=== PATIENT | female | born 1995 | race Caucasian/White ===

== ENCOUNTER 2022-11-26 09:46 | Emergency (ER) | payer OTHER, SELFPAY ==
--- NOTE | 2022-11-26 10:00 | ED.GENADULT ---
HPI - General Adult General Stated complaint: COVID+, Chest/Lung Pain,SOB Time Seen by Provider: 11/26/22 09:58 Discharge Plan Departure Referrals: Miscellaneous,Doctor, [Primary Care Provider] -
[2022-11-26 10:10] VITALS: BP 143/88; PULSE 94; RESP 18; TEMP 37.3; O2SAT 98; BMI 22.3
--- NOTE | 2022-11-26 10:14 | DI.RAD.S_ITS ---
PROCEDURE: XR CHEST 1V INDICATIONS: couch, chest pain with cough TECHNIQUE: One view of the chest was acquired. COMPARISON: None. FINDINGS: Surgical changes and devices: Right upper quadrant surgical clips. Lungs and pleura: Lungs are clear. No pleural effusions or pneumothorax. Mediastinum: Mediastinal contours appear normal. Heart size is normal. Bones and chest wall: No suspicious bony lesions. Overlying soft tissues appear unremarkable. IMPRESSION: Portable chest within normal limits for age. Dictated by: Darren Khan M.D. on 11/26/2022 at 11:02 Approved by: Darren Khan M.D. on 11/26/2022 at 11:03
[2022-11-26 10:39] LABS: COVID19 -Nasal RAPID POSITIVE (Negative)
--- NOTE | 2022-11-26 11:50 | ED_ITS ---
HPI - URI/Sore Throat <John Santos PA-C - Last Filed: 11/26/22 12:07> General Chief Complaint: Upper Respiratory Symptoms Stated Complaint: COVID+, Chest/Lung Pain,SOB Time Seen by Provider: 11/26/22 09:58 Source: patient Mode of arrival: Ambulatory History of Present Illness HPI Narrative: This is a 27-year-old female presents emergency department due to URI symptoms for the last 6 days. She states she was she has a continued cough. No recorded fevers. States that she has had some mild shortness of breath though she states she does have asthma. States she has a runny nose and has been extra fatigued. Denies any significant chest pain, abdominal pain, or any other concerning signs or symptoms. Related Data Previous Rx's Medication Instructions Recorded albuterol sulfate 90 mcg/actuation 1 inh inhalation Q4-6H PRN 11/26/22 breath activated powder inhaler shortness of breath #1 ea benzonatate 100 mg capsule 100 mg PO BID PRN cough #30 caps 11/26/22 Allergies Allergy/AdvReac Type Severity Reaction Status Date / Time amoxicillin [From Augmentin] Allergy Hives Verified 11/26/22 10:14 clavulanic acid Allergy Hives Verified 11/26/22 10:14 [From Augmentin] metoclopramide [From Reglan] Allergy Anxiety Verified 11/26/22 10:14 gabapentin AdvReac Nausea Verified 11/26/22 10:14 ketorolac [From Toradol] AdvReac Nausea Verified 11/26/22 10:14 Review of Systems <John Santos PA-C - Last Filed: 11/26/22 12:07> Review of Systems Narrative: GENERAL: Denies chills, fatigue, malaise, fever, sweats. HEENT: Denies sinus pain, ear pain, sore throat, difficulty swallowing, dizziness. RESPIRATORY: Reports mild shortness of breath although chronic, reports cough Denies, wheezing, hemoptysis, sputum. CARDIOVASCULAR: Denies chest pain, palpitations, orthopnea, edema, GASTROINTESTINAL: Denies nausea, vomiting, abdominal pain, diarrhea, constipation, melena. : Denies dysuria, frequency, incontinence, hematuria, urinary retention. MUSCULOSKELETAL: denies weakness, joint pain, or bony pain SKIN: Denies rash, skin lesions, or other NEUROLOGIC: Denies weakness, headache, numbness, change in speech, confusion, seizures, incoordination. PSYCHIATRIC: No concerning psychosocial issues. 12 point review of systems is negative except for those stated above Patient History <John Santos PA-C - Last Filed: 11/26/22 12:07> Social History Smoking Status: Never smoker Smoking Status: Never smoker alcohol intake frequency: 0-2 drinks per day Substance Use Type: marijuana Exam <ANGELA Hobbs Last Filed: 11/26/22 12:07> Narrative Exam Narrative: GENERAL: Well-developed patient, in mild distress. HEAD: Atraumatic. Normocephalic. EYES: Pupils equal round and reactive. Extraocular motions intact. No scleral icterus. No injection or drainage. ENT: Nose without bleeding, purulent drainage. Throat without erythema, tonsillar hypertrophy or exudate. Airway patent. NECK: Trachea midline. Non tender CARDIOVASCULAR: Regular rate and rhythm without murmurs, gallops, or rubs. RESPIRATORY: Clear to auscultation. Breath sounds equal bilaterally. No wheezes, rales, or rhonchi. GASTROINTESTINAL: Abdomen soft, non-tender, nondistended. EXTREMITIES: No edema or joint tenderness. BACK: Nontender without deformity or crepitance. No flank tenderness. NEURO: AOx3. SKIN: No rash or erythema of visible areas Initial Vital Signs Initial Vital Signs: Vital Signs Temperature 99.2 F 11/26/22 10:10 Pulse Rate 94 H 11/26/22 10:10 Respiratory Rate 18 11/26/22 10:10 Blood Pressure 143/88 H 11/26/22 10:10 Pulse Oximetry 98 11/26/22 10:10 Oxygen Delivery Method Room Air 11/26/22 10:10 <Fransico Worley DO - Last Filed: 11/27/22 08:54> Initial Vital Signs Initial Vital Signs: Vital Signs Temperature 99.2 F 11/26/22 10:10 Pulse Rate 94 H 11/26/22 10:10 Respiratory Rate 18 11/26/22 10:10 Blood Pressure 143/88 H 11/26/22 10:10 Pulse Oximetry 98 11/26/22 10:10 Oxygen Delivery Method Room Air 11/26/22 10:10 Course <John Santos PA-C - Last Filed: 11/26/22 12:07> Orders Ordered: ED Orders 11/26/22 10:14 XR chest 1V Stat 11/26/22 10:15 COVID19 -Nasal RAPID Stat Vital Signs Vital signs: Vital Signs - 8 hr 11/26/22 10:10 Temperature 99.2 F Pulse Rate 94 H Respiratory Rate 18 Blood Pressure 143/88 H Pulse Oximetry 98 Oxygen Delivery Method Room Air <Fransico Worley DO - Last Filed: 11/27/22 08:54> Orders Ordered: ED Orders 11/26/22 10:14 XR chest 1V Stat 11/26/22 10:15 COVID19 -Nasal RAPID Stat Vital Signs Vital signs: Vital Signs - 8 hr 11/26/22 10:10 Temperature 99.2 F Pulse Rate 94 H Respiratory Rate 18 Blood Pressure 143/88 H Pulse Oximetry 98 Oxygen Delivery Method Room Air MDM - URI/Sore Throat <John Santos PA-C - Last Filed: 11/26/22 12:07> Lab Data Labs: Lab Results 11/26/22 Range/Units 10:15 SARS-CoV-2 (PCR) Positive H (Negative) Imaging Data Chest x-ray: Radiologist's Impression: [place] [address] XRay Report Signed Patient: Lisa Sprague MR#: [id number] : 1995 Acct:[id number] Age/Sex: 27 / F Date of Service: 11/26/22 Loc: ED Accession Number: [id number] Procedure: XR chest 1V Ordering Provider: Fransico Worley D.O. PROCEDURE: XR CHEST 1V INDICATIONS: couch, chest pain with cough TECHNIQUE: One view of the chest was acquired. COMPARISON: None. FINDINGS: Surgical changes and devices: Right upper quadrant surgical clips. Lungs and pleura: Lungs are clear. No pleural effusions or pneumothorax. Mediastinum: Mediastinal contours appear normal. Heart size is normal. Bones and chest wall: No suspicious bony lesions. Overlying soft tissues appear unremarkable. IMPRESSION: Portable chest within normal limits for age. Dictated by: Darren Khan M.D. on 11/26/2022 at 11:02 Approved by: Darren Khan M.D. on 11/26/2022 at 11:03 MDM Narrative Medical decision making narrative: MDM * differential diagnosis includes but not limited to viral URI, COVID, influenza, strep throat * Prior records reviewed: Patient has not been here in the past * My lab interpretation: Positive for COVID-19 * My imgaing interpretation: Chest x-ray unremarkable * Clinical Decision Rules/Scores evaluated: None * Independent discussions with: None ED Course: This is a 27-year-old female presents emergency department due to URI symptoms for the last week. Patient tested positive for COVID-19. Chest x- ray showed no evidence of pneumonia. Lab work unremarkable. Patient states she has a history of asthma but is requesting a refill for albuterol inhaler. States that her cough is her main complaint. Advised to treat symptoms symptomatically. Shared Decision Making: Discussed plan with patient who is comfortable with the plan. Social Considerations: None Disposition: Discharged to home <Fransico Worley DO - Last Filed: 11/27/22 08:54> Lab Data Labs: Lab Results 11/26/22 Range/Units 10:15 SARS-CoV-2 (PCR) Positive H (Negative) Discharge Plan Departure Patient Disposition: Home Clinical Impression: COVID-19 Instructions: DI for COVID-19 (Suspected or Confirmed ) Activity Restrictions/Additional Instructions: Thank you for coming to the [facility] Emergency Department today. As we discussed your test came back positive for COVID-19. Please speak with your employer and check with the CDC website on when you are able to return to work. Your chest x-ray showed no evidence of pneumonia or any other lung abnormalities. Your symptoms should improve over time. I sent your medication to [facility] in [place]. I hope you feel better soon. Please follow up with your primary care provider within a week if your symptoms continue. If you do not have a primary care provider please contact the [facility] Resource line at [phone]. They will ask some questions about your medical history and help you get set up with a provider in the community. Prescriptions: New albuterol sulfate 90 mcg/actuation aerosol powdr breath activated 1 inh inhalation Q4-6H PRN (Reason: shortness of breath) Qty: 1 0RF benzonatate 100 mg capsule 100 mg PO BID PRN (Reason: cough) Qty: 30 0RF Referrals: Miscellaneous,DoctorMD [Primary Care Provider] - Stand Alone Forms: Patient Portal/API ED Sign-out <Fransico Worley DO - Last Filed: 11/27/22 08:54> Cosign ED Attending Víctor Attestation: I was immediately available in the department for consultation. Documentation has been reviewed. I agree with assessment and plan.
[2022-11-26 12:20] VITALS: BP 132/90; PULSE 89; RESP 18; TEMP 37.2; O2SAT 98
== END 2022-11-26 12:21 | disposition home or self-care (01) ==
PROVIDERS: Emergency Medicine; Emergency Provider Physician Assistant Medical
DX: U07.1 COVID-19 (principal)
CPT/HCPCS: 71045; 87635; 99281; 99283; C9803

== ENCOUNTER 2023-01-12 10:11 | Emergency (ER) | payer OTHER, SELFPAY ==
[2023-01-12 10:13] VITALS: BP 143/90; PULSE 98; RESP 15; TEMP 37; O2SAT 100; BMI 34.3
--- NOTE | 2023-01-12 10:22 | DI.US.S_ITS ---
PROCEDURE: US OB <= 14 WEEKS FETUS INDICATIONS: BLEEDING/CRAMPING OUTSIDE/PRIOR DATING DATA: Last menstrual period (LMP): November 28, 2022. LMP-based estimated date of delivery (LUIS): September 04, 2023 First dating scan (date and location): January 12, 2023, [facility] TECHNIQUE: Real-time scanning was performed of the fetus and maternal pelvic organs, with image documentation. Endovaginal scanning was also performed to better visualize the fetus and maternal ovaries. COMPARISON: None. FINDINGS: Embryo: A possible gestational sac is visualized within the endometrium which measures 0.4 cm. This corresponds with a gestational age of 5 weeks, 1 day by mean gestational sac diameter. Heart rate: No heart tones. Maternal organs: There is a right intramural 2.1 x 1.4 x 1.9 cm fibroid. The left ovary has a normal sonographic appearance. There is a possible right corpus luteal cyst present. IMPRESSION: 1. Questionable gestational sac within the endometrium which corresponds with a gestational age of 5 weeks, 1 day by mean gestational sac diameter. No pole or yolk sac is visualized. 2. Possible right corpus luteal cyst; however ectopic cannot be excluded and close clinical and sonographic surveillance is recommended. We strive to produce accurate, complete, and clear reports of imaging services. To assist us in improving patient care, this report was composed using standard report templates and voice recognition software. Therefore, it may contain abnormal punctuation, insertions and/or omissions. Occasional wrong-word or sound-alike substitutions may occur. Though we review the report and make efforts to correct it, we do recommend that the report be read carefully in proper context to recognize any text inaccuracies. Dictated by: Ernestine Keller M.D. on 01/12/2023 at 12:52 Approved by: Ernestine Keller M.D. on 01/12/2023 at 12:55
--- NOTE | 2023-01-12 10:58 | ED.PREGNANCY ---
HPI - General Chief complaint: Vaginal Bleeding Stated complaint: bleeding and cramping Time Seen by Provider: 01/12/23 10:21 Source: patient Mode of arrival: Ambulatory Limitations: no limitations History of Present Illness HPI Narrative: 27-year-old at approximately 5 wks gestation based on LMP presents by private vehicle from home for an episode of vaginal bleeding yesterday and pelvic cramping. She states that she was gurgling her symptoms and became very concerned about miscarriage so decided to present for evaluation. One previous miscarriage, denies history of ectopic . No established OBGYN care. Related Data Previous Rx's Medication Instructions Recorded albuterol sulfate 90 mcg/actuation 1 inh inhalation Q4-6H PRN 11/26/22 breath activated powder inhaler shortness of breath #1 ea benzonatate 100 mg capsule 100 mg PO BID PRN cough #30 caps 11/26/22 Allergies Allergy/AdvReac Type Severity Reaction Status Date / Time amoxicillin [From Augmentin] Allergy Hives Verified 01/12/23 10:25 clavulanic acid Allergy Hives Verified 01/12/23 10:25 [From Augmentin] metoclopramide [From Reglan] Allergy Anxiety Verified 01/12/23 10:25 gabapentin AdvReac Nausea Verified 01/12/23 10:25 ketorolac [From Toradol] AdvReac Nausea Verified 01/12/23 10:25 Review of Systems Review of Systems Narrative: Negative except as noted above Exam Initial Vital Signs Initial Vital Signs: Vital Signs Temperature 98.6 F 01/12/23 10:13 Pulse Rate 98 H 01/12/23 10:13 Respiratory Rate 15 01/12/23 10:13 Blood Pressure 143/90 H 01/12/23 10:13 Pulse Oximetry 100 01/12/23 10:13 Oxygen Delivery Method Room Air 01/12/23 10:13 Const: Awake, alert, no acute distress, nontoxic appearing Cardiac: regular rate, regular rhythm RESP: unlabored, clear bilaterally, no wheezing GI: Atraumatic, soft, nontender, nondistended, no rebound, no guarding MSK: Atraumatic, full range of motion, pulses equal Skin: Warm, Dry, intact, no rashes Neuro: AO x3, CN II-XII grossly intact, moves all extremities Psych: affect normal, mood normal, not suicidal, not homicidal Course Orders Ordered: Discontinued Medications Acetaminophen (Acetaminophen 325 Mg Tablet) 650 mg PO NOW ONE Stop: 01/12/23 13:33 Last Admin: 01/12/23 13:38 Dose: 650 mg Documented By: ROSANNA Morphine Sulfate (Morphine 2 Mg/Ml Inj) 2 mg IV NOW ONE Stop: 01/12/23 10:57 Last Admin: 01/12/23 11:07 Dose: Not Given Documented By: DAKOTA Morphine Sulfate (Morphine 4 Mg/Ml Inj) 2 mg SUBCUT NOW ONE Stop: 01/12/23 11:02 Last Admin: 01/12/23 11:05 Dose: Not Given Documented By: DAKOTA Morphine Sulfate (Morphine 2 Mg/Ml Inj) 2 mg IV NOW ONE Stop: 01/12/23 11:06 Last Admin: 01/12/23 11:11 Dose: Not Given Documented By: DAKOTA Morphine Sulfate (Morphine 2 Mg/Ml Inj) 2 mg IV NOW ONE Stop: 01/12/23 11:12 Last Admin: 01/12/23 11:12 Dose: 2 mg Documented By: DAKOTA Vital Signs Vital signs: Vital Signs - 8 hr 01/12/23 10:13 Temperature 98.6 F Pulse Rate 98 H Respiratory Rate 15 Blood Pressure 143/90 H Pulse Oximetry 100 Oxygen Delivery Method Room Air MDM - OB/Uterine Contractions Differential Diagnosis Differential diagnosis: Likely other (, missed , ectopic ) Lab Data 01/12/23 11:16 01/12/23 11:16 Labs: Lab Results 01/12/23 Range/Units 11:16 WBC 7.6 (4.5-11.0) X10^3/uL RBC 4.25 (4.0-5.2) X10^6/uL Hgb 12.7 (12.0-16.0) g/dL Hct 36.8 (36-46) % MCV 86.6 (80-100) fL MCH 29.8 (26-34) PG MCHC 34.5 (30-36) % RDW 13.7 (11.6-14.8) % Plt Count 227 (150-400) X10^3/uL Neut % (Auto) 60.9 (50-75) % Lymph % (Auto) 30.5 (25-40) % [place] % (Auto) 6.8 (3-14) % Eos % (Auto) 1.1 L (2-4) % Baso % (Auto) 0.7 (0-2) % Neut # (Auto) 4600 (9380-5514) /uL Lymph # (Auto) 2300 (3042-9590) /uL [place] # (Auto) 500 (0-900) /uL Eos # (Auto) 100 (0-450) /uL Baso # (Auto) 100 (0-100) /uL Sodium 134 L (137-145) mmol/L Potassium 3.4 (3.4-5.1) mmol/L Chloride 103 (98-107) mmol/L Carbon Dioxide 24 (22-32) mmol/L BUN 5 L (7-17) mg/dL Creatinine 0.72 (0.52-1.04) mg/dL Estimated GFR > 60 (>60) mL/min BUN/Creatinine Ratio 6.9 (6-22) Glucose 85 (70-100) mg/dL Calcium 9.3 (8.4-10.2) mg/dL Total Bilirubin 0.4 (0.2-1.3) mg/dL AST 19 (14-36) IU/L ALT 16 (<35) IU/L Alkaline Phosphatase 61 (38-126) U/L Total Protein 7.2 (6.3-8.2) g/dL Albumin 4.3 (3.5-5.0) g/dL Globulin 2.9 (1.7-4.1) g/dL Albumin/Globulin Ratio 1.5 (1.0-2.8) HCG, Quant 2094.8 mIU/mL Urine Color Yellow Urine Appearance Clear Urine pH 5.5 (4.5-8.0) Ur Specific [place] 1.015 (1.000-1.035) Urine Protein Negative (Negative) Urine Glucose (UA) Negative (Negative) g/dL Urine Ketones Negative (NEGATIVE) Urine Occult Blood Trace-intact (Negative) Urine Nitrate Negative (Negative) Urine Bilirubin Negative (NEGATIVE) Urine Urobilinogen 0.2 (0.2) E.U./dL Ur Leukocyte Esterase 1+ H (NEGATIVE) Urine RBC 1-5/hpf (0-5/HPF) Urine WBC 1-5/hpf (0-5/HPF) Ur Squamous Epith Cells 1-5 /hpf (0-5/HPF) Urine Bacteria None seen (None) Ur Culture Indicated? Specimen cultured Urine Test Positive H (Negative) Blood Type A Positive Treatment and disposition Social Determinants of Health that impact treatment or disposition: no health insurance MDM Narrative Medical decision making narrative: Well-appearing patient with bleeding in early . Abdomen soft. Vital stable. Ultrasound shows probable gestational sac, however at this age it is too early to determine. Patient advised close OBGYN follow up and serial HCGs to ensure rising hCG levels. Patient blood type A positive. Discharge Plan Departure Patient Disposition: Home Clinical Impression: Abdominal cramping affecting , Type A blood, Rh positive Instructions: Early Bleeding Activity Restrictions/Additional Instructions: You will need to have your hCG levels rechecked in 48 hours. Please follow up with OBGYN. There is a OBGYN Clinic here in [place], there is also a women's Center in [place] Prescriptions: No Action albuterol sulfate 90 mcg/actuation aerosol powdr breath activated 1 inh inhalation Q4-6H PRN (Reason: shortness of breath) Qty: 1 0RF benzonatate 100 mg capsule 100 mg PO BID PRN (Reason: cough) Qty: 30 0RF Referrals: Miscellaneous,DoctorMD [Primary Care Provider] - Rafael Bell MD [Physician] - Stand Alone Forms: Patient Portal/API, Work Release Note
[2023-01-12] MEDS: MORPHINE 2 MG/ML INJ IV (11:12)
[2023-01-12 11:33] LABS: Add Manual Diff / Slide Review NO; Appearance Urine UA CLEAR; Basophils Absolute Auto 100 /uL (0-100); Basophils Percent Auto 0.7 % (0-2); Bilirubin Urine UA NEGATIVE (NEGATIVE); Color Urine UA YELLOW; Eosinophils Absolute Auto 100 /uL (0-450); Eosinophils Percent Auto 1.1 % (2-4); Glucose Urine UA NEGATIVE (Negative); Hematocrit 36.8 % (36-46); Hemoglobin 12.7 g/dL (12.0-16.0); Ketones Urine UA NEGATIVE (NEGATIVE); Leukocyte Esterase Urine UA 1+ (NEGATIVE); Lymphocytes Absolute Auto 2300 /uL (1100-4500); Lymphocytes Percent Auto 30.5 % (25-40); Mean Corpuscular HGB Conc 34.5 % (30-36); Mean Corpuscular Hemoglobin 29.8 PG (26-34); Mean Corpuscular Volume 86.6 fL (80-100); Monocytes Absolute Auto 500 /uL (0-900); Monocytes Percent Auto 6.8 % (3-14); Neutrophils Absolute Auto 4600 /uL (1500-7000); Neutrophils Percent Auto 60.9 % (50-75); Nitrite Urine UA NEGATIVE (Negative); Occult Blood Urine UA TRACE-INTACT (Negative); Platelet Count 227 X10^3/uL (150-400); Protein Urine UA NEGATIVE (Negative); Red Blood Cell Count 4.25 X10^6/uL (4.0-5.2); Red Cell Distribution Width 13.7 % (11.6-14.8); Specific Gravity Urine UA 1.015 (1.000-1.035); Urobilinogen Urine UA 0.2 E.U./dL (0.2); White Blood Cell Count 7.6 X10^3/uL (4.5-11.0)
[2023-01-12 11:34] LABS: pH Urine UA 5.5 (4.5-8.0)
[2023-01-12 11:35] LABS: Pregnancy Test Urine Positive (Negative)
[2023-01-12 11:39] LABS: Bacteria Urine None Seen; Culture Indicated Urine Specimen Cultured; RBC Urine 1-5/HPF (0-5/HPF); Squamous Epithelial Cell Urine 1-5 /HPF (0-5/HPF); WBC Urine 1-5/HPF (0-5/HPF)
[2023-01-12 11:45] LABS: Alanine Aminotransferase 16 IU/L (<35); Albumin 4.3 g/dL (3.5-5.0); Albumin Globulin Ratio 1.5 (1.0-2.8); Alkaline Phosphatase 61 U/L (38-126); Aspartate Aminotransferase 19 IU/L (14-36); BUN Creatinine Ratio 6.9 (6-22); Bilirubin Total 0.4 mg/dL (0.2-1.3); Blood Urea Nitrogen 5 mg/dL (7-17); Calcium 9.3 mg/dL (8.4-10.2); Carbon Dioxide 24 mmol/L (22-32); Chloride 103 mmol/L (98-107); Estimated Glomerular Filt Rate > 60 mL/min (>60); Globulin 2.9 g/dL (1.7-4.1); Glucose 85 mg/dL (70-100); HEMOLYSIS < 15 (0-50); Potassium 3.4 mmol/L (3.4-5.1); Sodium 134 mmol/L (137-145); Total Protein 7.2 g/dL (6.3-8.2)
[2023-01-12 12:02] LABS: HCG Quantitative /Beta subunit 2094.8 mIU/mL
[2023-01-12] MEDS: ACETAMINOPHEN 325 MG TABLET 650 MG PO (13:38)
[2023-01-12 13:45] VITALS: BP 148/82; PULSE 89; RESP 16; O2SAT 100
== END 2023-01-12 13:47 | disposition home or self-care (01) ==
PROVIDERS: Emergency Provider Emergency Medicine
DX: O26.891 Other specified pregnancy related conditions, first trimester (principal); R10.9 Unspecified abdominal pain; O20.9 Hemorrhage in early pregnancy, unspecified; Z67.10 Type A blood, Rh positive; Z3A.01 Less than 8 weeks gestation of pregnancy
CPT/HCPCS: 36415; 76801; 76830; 80053; 81003; 81015; 81025; 84702; 85025; 86900; 86901; 87086; 96372; 96374; 96375; 99284; J2270

== ENCOUNTER 2023-02-19 07:45 | Emergency (ER) | payer OTHER, SELFPAY ==
[2023-02-19 07:54] VITALS: BP 139/98; PULSE 85; RESP 16; TEMP 36.9; O2SAT 98; BMI 36.3
--- NOTE | 2023-02-19 07:56 | DI.US.S_ITS ---
PROCEDURE: US OB <= 14 WEEKS FETUS INDICATIONS: SPOTTING OUTSIDE/PRIOR DATING DATA: Last menstrual period (LMP): Given as 11/28/2022. LMP-based estimated date of delivery (LUIS): 09/04/2023. First dating scan (date and location): 02/19/2023. Estimated date of delivery (LUIS) from first dating scan: 09/11/2023. The calculations are made using the ultrasound LUIS of 09/11/2023. TECHNIQUE: Real-time scanning was performed of the fetus and maternal pelvic organs, with image documentation. Endovaginal scanning was also performed to better visualize the fetus and maternal ovaries. COMPARISON: [facility], , OB <= 14 WEEKS FETUS, 01/12/2023, 10:40. FINDINGS: Embryo: A single live intrauterine is seen. The measured heart rate is 168 beats per minute. The crown-rump length measures 3.9 cm, corresponding to an estimated gestational age of 10 weeks 6 days. It is too early for detailed anatomic assessment. By visual inspection, the amount of amniotic fluid is within normal limits. There is a potential perigestational bleed seen along the fundal uterus measuring 1.8 x 2.2 x 0.6 cm Maternal organs: Ovaries are within normal limits, with a likely corpus luteum seen on the right. A heterogeneous uterus with a potential uterine fibroid can be seen that measures up to 2.9 cm. IMPRESSION: A single live intrauterine is seen. There is a potential perigestational bleed seed measuring up to 2.2 cm. Close clinical followup, with serial beta-hCG and serial ultrasound are recommended, if clinically appropriate. Additional findings: Heterogeneous uterus with a potential uterine fibroid We strive to produce accurate, complete, and clear reports of imaging services. To assist us in improving patient care, this report was composed using standard report templates and voice recognition software. Therefore, it may contain abnormal punctuation, insertions and/or omissions. Occasional wrong-word or sound-alike substitutions may occur. Though we review the report and make efforts to correct it, we do recommend that the report be read carefully in proper context to recognize any text inaccuracies. Dictated by: Lasha Mckeon M.D. on 02/19/2023 at 9:40 Approved by: Lasha Mckeon M.D. on 02/19/2023 at 9:42
--- NOTE | 2023-02-19 08:00 | ED.GENADULT ---
HPI - General Adult General Chief complaint: Dental/Oral Stated complaint: dental wrk 1/5-swelling/pain/ 11wks preg Time Seen by Provider: 02/19/23 07:50 Source: patient Mode of arrival: Ambulatory History of Present Illness HPI narrative: Patient is a 27-year-old female. Eleven weeks EGA. Is Rh positive. Is here for evaluation of pain and swelling to her right upper jaw. She states yesterday she had a tooth pulled. She states the tooth was cracked and infected. She was supposed to take a dose of antibiotics prior to the procedure but they got her in sooner so she took the antibiotics after the procedure. She then threw up very shortly afterwards. She was only instructed to take 1 dose of the antibiotics. She is 11 weeks . Had some vaginal spotting last evening. Nothing this morning. No cramping but she states she feels like she has not completely emptying her bladder. She is still nauseous. She has Zofran at home. Has swelling to her right upper jaw. No problems breathing. Related Data Previous Rx's Medication Instructions Recorded albuterol sulfate 90 mcg/actuation 1 inh inhalation Q4-6H PRN 11/26/22 breath activated powder inhaler shortness of breath #1 ea benzonatate 100 mg capsule 100 mg PO BID PRN cough #30 caps 11/26/22 clindamycin HCl 300 mg capsule 300 mg PO QID 7 days #28 caps 02/19/23 hydrocodone 5 mg-acetaminophen 325 1 tab PO Q8H PRN pain #4 tabs 02/19/23 mg tablet Allergies Allergy/AdvReac Type Severity Reaction Status Date / Time amoxicillin [From Augmentin] Allergy Hives Verified 01/12/23 10:25 clavulanic acid Allergy Hives Verified 01/12/23 10:25 [From Augmentin] metoclopramide [From Reglan] Allergy Anxiety Verified 01/12/23 10:25 gabapentin AdvReac Nausea Verified 01/12/23 10:25 ketorolac [From Toradol] AdvReac Nausea Verified 01/12/23 10:25 Review of Systems ENT Ears, Nose, Mouth, and Throat: Reports system reviewed and no additional complaints, except as documented Cardiovascular Cardiovascular: Reports system reviewed and no additional complaints, except as documented Respiratory Respiratory: Reports system reviewed and no additional complaints, except as documented Integumentary/Breasts Skin/Breast: Reports system reviewed and no additional complaints, except as documented Neurologic Neurologic: Reports system reviewed and no additional complaints, except as documented Patient History Social History Smoking Status: Never smoker Smoking Status: Never smoker alcohol intake frequency: holidays/special occasions only Substance Use Type: marijuana Exam Initial Vital Signs Initial Vital Signs: Vital Signs Temperature 98.4 F 02/19/23 07:54 Pulse Rate 85 02/19/23 07:54 Respiratory Rate 16 02/19/23 07:54 Blood Pressure 139/98 H 02/19/23 07:54 Pulse Oximetry 98 02/19/23 07:54 Oxygen Delivery Method Room Air 02/19/23 07:54 HENMT Face and sinus: other (Swelling right maxilla area) Teeth and gingiva: other (Missing right upper premolar) Resp Auscultation: clear to auscultation bilaterally GI Inspection: normal to inspection Skin General: no rashes or lesions noted Neuro General: patient alert, patient awake and moves all extremities Course Orders Ordered: ED Orders 02/19/23 07:56 US OB <= 14 weeks fetus Stat Discontinued Medications Ondansetron HCl (Ondansetron 4 Mg Odt) 4 mg SL NOW ONE Stop: 02/19/23 07:57 Last Admin: 02/19/23 08:14 Dose: 4 mg Documented By: MIKEL Oxycodone HCl (Oxycodone Ir 5 Mg Tablet) 5 mg PO NOW ONE Stop: 02/19/23 08:59 Last Admin: 02/19/23 09:03 Dose: 5 mg Documented By: RB Vital Signs Vital signs: Vital Signs - 8 hr 02/19/23 07:54 02/19/23 09:08 02/19/23 09:08 Temperature 98.4 F Pulse Rate 85 78 Respiratory Rate 16 Blood Pressure 139/98 H 164/113 H Pulse Oximetry 98 96 Oxygen Delivery Method Room Air 02/19/23 09:30 02/19/23 09:30 02/19/23 10:05 Temperature Pulse Rate 73 71 Respiratory Rate Blood Pressure 154/88 H Pulse Oximetry 98 98 Oxygen Delivery Method 02/19/23 10:30 02/19/23 10:30 Temperature Pulse Rate 66 Respiratory Rate Blood Pressure 165/102 H Pulse Oximetry 97 Oxygen Delivery Method Medical Decision Making Lab Data Lab results reviewed: Yes I reviewed the patient's lab results. Labs: Urine Dip Bedside Urine Glucose Negative Bedside Urine Bilirubin - Negative Bedside Urine Ketone - Negative Urine Specific [place] 1.010 Bedside Urine Occult Blood - Negative Bedside Urine pH 6.5 Bedside Urine Protein - Negative Bedside Urine Urobilinogen - Negative Bedside Urine Nitrite - Negative Bedside Urine Leukocytes - Negative Esterase Point of care testing: Urine Dip Bedside Urine Glucose Negative Bedside Urine Bilirubin - Negative Bedside Urine Ketone - Negative Urine Specific [place] 1.010 Bedside Urine Occult Blood - Negative Bedside Urine pH 6.5 Bedside Urine Protein - Negative Bedside Urine Urobilinogen - Negative Bedside Urine Nitrite - Negative Bedside Urine Leukocytes - Negative Esterase Imaging Data US - OB: Radiologist's Impression: PROCEDURE: US OB <= 14 WEEKS FETUS INDICATIONS: SPOTTING OUTSIDE/PRIOR DATING DATA: Last menstrual period (LMP): Given as 11/28/2022. LMP-based estimated date of delivery (LUIS): 09/04/2023. First dating scan (date and location): 02/19/2023. Estimated date of delivery (LUIS) from first dating scan: 09/11/2023. The calculations are made using the ultrasound LUIS of 09/11/2023. TECHNIQUE: Real-time scanning was performed of the fetus and maternal pelvic organs, with image documentation. Endovaginal scanning was also performed to better visualize the fetus and maternal ovaries. COMPARISON: [facility], , US OB <= 14 WEEKS FETUS, 01/12/2023, 10:40. FINDINGS: Embryo: A single live intrauterine is seen. The measured heart rate is 168 beats per minute. The crown-rump length measures 3.9 cm, corresponding to an estimated gestational age of 10 weeks 6 days. It is too early for detailed anatomic assessment. By visual inspection, the amount of amniotic fluid is within normal limits. There is a potential perigestational bleed seen along the fundal uterus measuring 1.8 x 2.2 x 0.6 cm Maternal organs: Ovaries are within normal limits, with a likely corpus luteum seen on the right. A heterogeneous uterus with a potential uterine fibroid can be seen that measures up to 2.9 cm. IMPRESSION: A single live intrauterine is seen. There is a potential perigestational bleed seed measuring up to 2.2 cm. Close clinical followup, with serial beta-hCG and serial ultrasound are recommended, if clinically appropriate. Additional findings: Heterogeneous uterus with a potential uterine fibroid MDM Narrative Medical decision making narrative: Physical exam findings today is consistent with a right-sided dental abscess. There are no intra oral abscesses that can be drained however given her status we will start her on antibiotics. A prescription was sent to the pharmacy of her choice. We discussed the appropriate use of Tylenol. Discussed that she should follow-up with a dentist if her symptoms are not improving in the next couple days. She expressed understanding and agreement with plan. Discharge Plan Departure Patient Disposition: Home Clinical Impression: Dental abscess Instructions: Tooth Abscess, DI for Dental Pain Activity Restrictions/Additional Instructions: If you take the 1000 mg (two 500 mg tablets) of Tylenol you can do this every 6 hours. You can also try other things such as ice. If your symptoms are not improving with the antibiotics you do need to follow-up with the dentist who did the procedure. Keep all of your scheduled medical appointments. Prescriptions: New clindamycin HCl 300 mg capsule 300 mg PO QID 7 Days Qty: 28 0RF hydrocodone-acetaminophen 5-325 mg tablet 1 tab PO Q8H PRN (Reason: pain) Qty: 4 0RF No Action albuterol sulfate 90 mcg/actuation aerosol powdr breath activated 1 inh inhalation Q4-6H PRN (Reason: shortness of breath) Qty: 1 0RF benzonatate 100 mg capsule 100 mg PO BID PRN (Reason: cough) Qty: 30 0RF Referrals: Miscellaneous,Doctor, MD [Primary Care Provider] - Stand Alone Forms: Patient Portal/API
[2023-02-19] MEDS: ONDANSETRON 4 MG ODT SL (08:14)
[2023-02-19] MEDS: OXYCODONE IR 5 MG TABLET PO (09:03)
[2023-02-19 09:08] VITALS: BP 164/113; PULSE 78; O2SAT 96
[2023-02-19 09:30] VITALS: BP 154/88; PULSE 73; O2SAT 98
[2023-02-19 10:05] VITALS: PULSE 71; O2SAT 98
[2023-02-19 10:30] VITALS: BP 165/102; PULSE 66; O2SAT 97
[2023-02-19 11:00] VITALS: BP 152/105; PULSE 80; O2SAT 98
== END 2023-02-19 11:03 | disposition home or self-care (01) ==
PROVIDERS: Emergency Provider Emergency Medicine
DX: O26.891 Other specified pregnancy related conditions, first trimester (principal); K04.7 Periapical abscess without sinus; O26.851 Spotting complicating pregnancy, first trimester; Z3A.11 11 weeks gestation of pregnancy
CPT/HCPCS: 76801; 76817; 81003; 99283

== ENCOUNTER 2024-04-10 17:43 | Emergency (ER) | payer OTHER, SELFPAY ==
[2024-04-10] VITALS (11 sets, daily range): BP systolic 130–160; BP diastolic 75–97; PULSE 64–93; RESP 16–18; TEMP 36.2; O2SAT 97–100
[2024-04-10 18:27] LABS: Appearance Urine UA SL CLOUDY; Bilirubin Urine UA NEGATIVE (NEGATIVE); Color Urine UA RED; Glucose Urine UA NEGATIVE (Negative); Ketones Urine UA NEGATIVE (NEGATIVE); Leukocyte Esterase Urine UA TRACE (NEGATIVE); Nitrite Urine UA NEGATIVE (Negative); Occult Blood Urine UA 3+ (Negative); Protein Urine UA 1+ (Negative); Specific Gravity Urine UA 1.025 (1.000-1.035); Urine Volume 10mL (spun); Urobilinogen Urine UA 0.2 E.U./dL (0.2)
[2024-04-10 18:28] LABS: Bacteria Urine Few (2-10); Culture Indicated Urine Cult Not Indicated; RBC Urine >100/HPF (0-5/HPF); Squamous Epithelial Cell Urine 1-5 /HPF (0-5/HPF); WBC Urine 1-5/HPF (0-5/HPF)
[2024-04-10 18:39] LABS: Alanine Aminotransferase 19 IU/L (<35); Albumin 4.3 g/dL (3.5-5.0); Albumin Globulin Ratio 1.4 (1.0-2.8); Alkaline Phosphatase 59 U/L (38-126); Aspartate Aminotransferase 25 IU/L (14-36); BUN Creatinine Ratio 13.2 (6-22); Bilirubin Total 0.2 mg/dL (0.2-1.3); Blood Urea Nitrogen 9 mg/dL (7-17); Calcium 9.1 mg/dL (8.4-10.2); Carbon Dioxide 24 mmol/L (22-32); Chloride 104 mmol/L (98-107); Estimated Glomerular Filt Rate > 60 mL/min (>60); Glucose 112 mg/dL (70-100); HEMOLYSIS 23 (0-50); Lipase 79 U/L (23-300); Potassium 3.5 mmol/L (3.4-5.1); Sodium 137 mmol/L (137-145); Total Protein 7.3 g/dL (6.3-8.2)
[2024-04-10 18:40] LABS: Add Manual Diff / Slide Review NO; Basophils Absolute Auto 0 /uL (0-100); Basophils Percent Auto 0.4 % (0-2); Eosinophils Absolute Auto 100 /uL (0-450); Eosinophils Percent Auto 1.2 % (2-4); Hematocrit 39.7 % (36-46); Hemoglobin 13.2 g/dL (12.0-16.0); Lymphocytes Absolute Auto 3300 /uL (1100-4500); Lymphocytes Percent Auto 32.1 % (25-40); Mean Corpuscular HGB Conc 33.2 % (30-36); Mean Corpuscular Hemoglobin 27.3 PG (26-34); Mean Corpuscular Volume 82.5 fL (80-100); Monocytes Absolute Auto 600 /uL (0-900); Monocytes Percent Auto 5.3 % (3-14); Neutrophils Absolute Auto 6400 /uL (1500-7000); Platelet Count 201 X10^3/uL (150-400); Red Blood Cell Count 4.81 X10^6/uL (4.0-5.2); Red Cell Distribution Width 14.9 % (11.6-14.8); White Blood Cell Count 10.4 X10^3/uL (4.5-11.0)
--- NOTE | 2024-04-10 21:34 | ED_ITS ---
HPI - Female Genitourinary General Chief complaint: Urogenital-Female Stated complaint: vomiting, back & pelvic pain, blood in urine Time Seen by Provider: 04/10/24 21:34 History of Present Illness HPI Narrative: 28-year-old female without any significant past medical history comes into the ED from home for evaluation of left flank pain, states it radiated ingrown states that she has been having fevers yesterday took Tylenol Motrin did not help, also stating that she has been having dysuria, states history of kidney stones, states similar to previous. Patient denies any other symptoms such as headache visual disturbances chest pain shortness breath or any other GI/ symptoms. Related Data Previous Rx's Medication Instructions Recorded albuterol sulfate 90 mcg/actuation 1 inh inhalation Q4-6H PRN 11/26/22 breath activated powder inhaler shortness of breath #1 ea benzonatate 100 mg capsule 100 mg PO BID PRN cough #30 caps 11/26/22 hydrocodone 5 mg-acetaminophen 325 1 tab PO Q8H PRN pain #4 tabs 02/19/23 mg tablet sulfamethoxazole 800 1 tab PO BID 10 days #20 tabs 04/10/24 mg-trimethoprim 160 mg tablet (Bactrim DS) Allergies Allergy/AdvReac Type Severity Reaction Status Date / Time amoxicillin [From Augmentin] Allergy Hives Verified 01/12/23 10:25 clavulanic acid Allergy Hives Verified 01/12/23 10:25 [From Augmentin] metoclopramide [From Reglan] Allergy Anxiety Verified 01/12/23 10:25 gabapentin AdvReac Nausea Verified 01/12/23 10:25 ketorolac [From Toradol] AdvReac Nausea Verified 01/12/23 10:25 Review of Systems Review of Systems Narrative: General: Denies fever, chills, weight loss HEENT: Denies headache, eye drainage, eye irritation, head trauma, sore throat, voice change Cardiovascular: Denies any chest pain, palpitations, shortness of breath, tachycardia Respiratory: Denies any shortness of breath, cough, wheeze, stridor GI/: Positive left-sided flank pain, dysuria Denies any abdominal pain, nausea, vomiting, diarrhea, bright red blood per rectum, melanotic stools, urinary frequency, urinary retention,hematuria MSK: Denies any joint pain, muscle pains, swelling Skin: Denies any rashes, lesions, discoloration Neuro: Denies any headache, lightheadedness, dizziness, fainting, weakness Psych: Denies SI/HI Exam Narrative Exam Narrative: General: Cooperative, comfortable, well-developed, not in acute distress HEENT: Normocephalic, atraumatic, PERRLA, normal sclera, eyelids normal, Neck: Active full range of motion, atraumatic Chest: Normal to inspection, negative crepitus, no overlying erythema ecchymosis Respiratory: Normal respiratory effort, not in acute respiratory distress, clear to auscultation bilaterally negative cough, wheeze, tachypnea, rhonchi, rales Cardiology: Regular rate rhythm negative gallop, murmur, rubs GI/: Positive left CVA tenderness, Normal to inspection, soft, nonrigid, no tenderness to palpation, exam deferred MSK: Full range of active range of motion of all 4 extremities, atraumatic Skin: No rashes lesions noted Neuro: Alert awake oriented x3, moves all 4 extremities spontaneously, cranial nerves intact, able to answer all questions appropriately follows commands appropriately Psych: Cooperative, negative suicidal or homicidal ideations Initial Vital Signs Initial Vital Signs: Vital Signs Temperature 97.1 F L 04/10/24 17:57 Pulse Rate 93 H 04/10/24 17:57 Respiratory Rate 18 04/10/24 17:57 Blood Pressure 160/97 H 04/10/24 17:57 Pulse Oximetry 100 04/10/24 17:57 Oxygen Delivery Method Room Air 04/10/24 17:57 Course Orders Ordered: ED Orders 04/10/24 18:10 Urinalysis and Microscopic Stat 04/10/24 18:11 Complete Blood Count AUTO DIFF Stat Comprehensive Metabolic Panel Stat Lipase Stat 04/10/24 21:35 CT kidney ureter bladder (KUB) Stat Ondansetron HCl (Ondansetron 4 Mg/2 Ml Inj) 4 mg IV NOW PRN PRN Reason: Nausea And Vomiting Ondansetron HCl (Ondansetron 4 Mg Odt) 4 mg PO NOW PRN PRN Reason: Nausea And Vomiting Discontinued Medications Sodium Chloride (Normal Saline 0.9%) 1,000 mls @ 1,000 mls/hr IV BOLUS ONE Stop: 04/10/24 22:34 Last Admin: 04/10/24 22:03 Dose: 1,000 mls/hr Documented By: CHUCK Morphine Sulfate (Morphine 4 Mg/Ml Inj) 4 mg IV NOW ONE Stop: 04/10/24 21:37 Last Admin: 04/10/24 21:42 Dose: 4 mg Documented By: CHUCK Ondansetron HCl (Ondansetron 4 Mg/2 Ml Inj) 4 mg IV NOW ONE Stop: 04/10/24 21:36 Last Admin: 04/10/24 21:42 Dose: 4 mg Documented By: CHUCK Vital Signs Vital signs: Vital Signs - 8 hr 04/10/24 17:57 04/10/24 20:44 04/10/24 21:00 Temperature 97.1 F L Pulse Rate 93 H 75 72 Respiratory Rate 18 18 Blood Pressure 160/97 H Pulse Oximetry 100 98 98 Oxygen Delivery Method Room Air 04/10/24 21:30 04/10/24 21:43 04/10/24 22:27 Temperature Pulse Rate 68 77 Respiratory Rate 17 Blood Pressure 131/81 Pulse Oximetry 98 99 Oxygen Delivery Method Room Air 04/10/24 22:28 04/10/24 22:30 04/10/24 22:31 Temperature Pulse Rate 76 64 67 Respiratory Rate 16 Blood Pressure Pulse Oximetry 99 98 97 Oxygen Delivery Method Room Air Room Air 04/10/24 22:31 Temperature Pulse Rate Respiratory Rate Blood Pressure 142/75 H Pulse Oximetry Oxygen Delivery Method MDM - Female Genitourinary Differential Diagnosis Differential diagnosis: Likely urinary tract infection and other (Urolithiasis, pyelonephritis, electrolyte abnormality) Lab Data 04/10/24 18:11 04/10/24 18:11 Labs: Lab Results 04/10/24 04/10/24 Range/Units 18:10 18:11 WBC 10.4 (4.5-11.0) X10^3/uL RBC 4.81 (4.0-5.2) X10^6/uL Hgb 13.2 (12.0-16.0) g/dL Hct 39.7 (36-46) % MCV 82.5 (80-100) fL MCH 27.3 (26-34) PG MCHC 33.2 (30-36) % RDW 14.9 H (11.6-14.8) % Plt Count 201 (150-400) X10^3/uL Neut % (Auto) 61.0 (50-75) % Lymph % (Auto) 32.1 (25-40) % [place] % (Auto) 5.3 (3-14) % Eos % (Auto) 1.2 L (2-4) % Baso % (Auto) 0.4 (0-2) % Neut # (Auto) 6400 (4443-4357) /uL Lymph # (Auto) 3300 (6276-9676) /uL [place] # (Auto) 600 (0-900) /uL Eos # (Auto) 100 (0-450) /uL Baso # (Auto) 0 (0-100) /uL Sodium 137 (137-145) mmol/L Potassium 3.5 (3.4-5.1) mmol/L Chloride 104 (98-107) mmol/L Carbon Dioxide 24 (22-32) mmol/L BUN 9 (7-17) mg/dL Creatinine 0.68 (0.52-1.04) mg/dL Estimated GFR > 60 (>60) mL/min BUN/Creatinine Ratio 13.2 (6-22) Glucose 112 H (70-100) mg/dL Calcium 9.1 (8.4-10.2) mg/dL Total Bilirubin 0.2 (0.2-1.3) mg/dL AST 25 (14-36) IU/L ALT 19 (<35) IU/L Alkaline Phosphatase 59 (38-126) U/L Total Protein 7.3 (6.3-8.2) g/dL Albumin 4.3 (3.5-5.0) g/dL Globulin 3.0 (1.7-4.1) g/dL Albumin/Globulin Ratio 1.4 (1.0-2.8) Lipase 79 (23-300) U/L Urine Color Red Urine Appearance Sl cloudy Urine pH 6.0 (4.5-8.0) Ur Specific [place] 1.025 (1.000-1.035) Urine Protein 1+ H (Negative) Urine Glucose (UA) Negative (Negative) g/dL Urine Ketones Negative (NEGATIVE) Urine Occult Blood 3+ H (Negative) Urine Nitrate Negative (Negative) Urine Bilirubin Negative (NEGATIVE) Urine Urobilinogen 0.2 (0.2) E.U./dL Ur Leukocyte Esterase Trace H (NEGATIVE) Urine RBC >100/hpf H (0-5/HPF) Urine WBC 1-5/hpf (0-5/HPF) Ur Squamous Epith Cells 1-5 /hpf (0-5/HPF) Urine Bacteria Few (2-10) H (None) Ur Culture Indicated? Cult not indicated Vol Urine Centrifuged 10ml (spun) Point of Care Testing Test Results Negative Imaging Data CT KUB: Radiologist's Impression: [address] [address] [address] Scan Report Signed Patient: Lisa Sprague MR#: [id number] : 1995 Acct:[id number] Age/Sex: 28 / F Date of Service: 04/10/24 Loc: ED Accession Number: [id number] Procedure: CT kidney ureter bladder (KUB) Ordering Provider: Rock Valles D.O. PROCEDURE: CT KIDNEY URETER BLADDER (KUB) INDICATIONS: left flank pain TECHNIQUE: Axial sections were acquired from the lung bases to the pubic symphysis. Coronal and sagittal reformats were performed. For radiation dose reduction, the following was used: automated exposure control, adjustment of mA and/or kV according to patient size. COMPARISON: None. FINDINGS: Image quality: Diagnostic. Lower Chest: No significant findings. URINARY: Right Kidney: No stones or hydronephrosis. Right Ureter: No hydroureter. Left Kidney: No stones or hydronephrosis. Left Ureter: No hydroureter. Bladder: Normal wall thickness. No stones. ABDOMEN: Liver: Indeterminate lesion at the inferior pole the right hepatic lobe measuring 2.7 cm in 43 Hounsfield units. Gallbladder: Surgically absent. Biliary ducts: No biliary dilation. Pancreas: No ductal dilation. Spleen: Size is within normal limits. Adrenal Glands: No adrenal nodules. Stomach and Bowel: Normal colonic caliber, without significant wall thickening. Normal appendix. Peritoneum: No abnormal intraperitoneal fluid. No free air. Ventral Wall: No hernia. Abdominal Nodes: No enlarged retroperitoneal or mesenteric lymph nodes. Vessels: Aorta and inferior vena cava are normal in size. PELVIS: Pelvic Organs: Simple appearing right ovarian cyst measuring 5.6 cm. Pelvic Nodes: Unremarkable. Miscellaneous: No inguinal hernias are seen. Bones: Unremarkable. IMPRESSION: 1. No obstructing stones or hydronephrosis. No acute findings within the abdomen or pelvis to explain patient's symptoms. 2. Right ovarian simple appearing cyst measuring 5.6 cm. Recommend follow-up pelvic ultrasound to assess for resolution. 3. Indeterminate lesion at the inferior pole of the right hepatic lobe measuring 2.7 cm. Recommend nonurgent abdominal ultrasound for further evaluation. MDM Narrative Medical decision making narrative: 28-year-old female history of nephrolithiasis presenting for left-sided flank pain dysuria ongoing persistent for the past week, also complaining of nausea but no actual abdominal pain chest pain shortness of breath or any other GI/ symptoms time. Patient urinalysis with hematuria. Lab work unremarkable no leukocytosis , creatinine BUN normal, CT KUB was performed here did not show any urolithiasis nephrolithiasis did noted right sided ovarian cyst however this is not causing the patient's symptoms instructed follow up with her OBGYN. Given patient with hematuria over left-sided flank pain possibly patient with recently passed stone we will treat with analgesia antiemetics and prophylactic antibiotics for possible pyelonephritis. Patient was given strict return precautions she verbalized understanding of this and agrees to being discharged home with outpatient follow up. Discharge Plan Departure Patient Disposition: Home Clinical Impression: Pyelonephritis Instructions: DI for Kidney Infection Activity Restrictions/Additional Instructions: Please follow up with OBGYN and primary care Please read the discharge instructions sheet carefully and bring all papers to all doctor follow-up visits, as it may contain information that your doctor may want to see. Disease processes change and evolve, if your symptoms worsen or if you develop any new symptoms that are concerning to you please return for evaluation. Your evaluation today does not show any evidence of any life- threatening/serious illnesses requiring admission to the hospital or surgery. Please follow-up with your doctor for re-evaluation in approximately 1 day. Seek immediate medical attention for any worrisome symptoms. *If you do not have a primary care provider please contact the [facility] Resource line at [phone]. They will ask some questions about your medical history and help get you set up with a doctor in the community. Prescriptions: New sulfamethoxazole-trimethoprim [Bactrim DS] 800-160 mg tablet 1 tab PO BID 10 Days Qty: 20 0RF No Action albuterol sulfate 90 mcg/actuation aerosol powdr breath activated 1 inh inhalation Q4-6H PRN (Reason: shortness of breath) Qty: 1 0RF benzonatate 100 mg capsule 100 mg PO BID PRN (Reason: cough) Qty: 30 0RF hydrocodone-acetaminophen 5-325 mg tablet 1 tab PO Q8H PRN (Reason: pain) Qty: 4 0RF Referrals: Miscellaneous,Doctor, MD [Primary Care Provider] - Stand Alone Forms: Patient Portal/API/Survey
[2024-04-10] MEDS: ONDANSETRON 4 MG/2 ML INJ IV (21:42)
[2024-04-10] MEDS: MORPHINE 4 MG/ML INJ IV (21:42)
[2024-04-10] MEDS: SODIUM CHLORIDE 0.9% 1,000 ML 1000 ML IV (22:03)
[2024-04-10] MEDS: ONDANSETRON 4 MG ODT PREPACK 1 BOTTLE MISC (23:49)
[2024-04-10] MEDS: OXYCODONE/APAP 5/325 PREPACK 1 BOTTLE MISC (23:49)
[2024-04-10] MEDS: TRIMETH/SULFA 160/800 (DS) TABLET 1 TAB PO (23:49)
== END 2024-04-10 23:59 | disposition home or self-care (01) ==
PROVIDERS: Emergency Medicine; Emergency Provider Student in an Organized Health Care Education/Training Program
DX: N12 Tubulo-interstitial nephritis, not specified as acute or chronic (principal); Z87.442 Personal history of urinary calculi
CPT/HCPCS: 36415; 74176; 80053; 81001; 81025; 83690; 85025; 96361; 96374; 96375; 99284; J2270; J2405

== ENCOUNTER 2024-07-13 14:52 | Emergency (ER) | payer OTHER, SELFPAY ==
[2024-07-13 15:02] VITALS: BP 143/101; PULSE 88; RESP 16; TEMP 36.4; O2SAT 98; BMI 34.3
[2024-07-13 18:23] LABS: Bacteria Urine Few (2-10); Ictotest Urine Negative (Negative); RBC Urine >100/HPF (0-5/HPF); Squamous Epithelial Cell Urine None Seen (0-5/HPF); Urine Volume 10mL (spun); WBC Urine 1-5/HPF (0-5/HPF)
[2024-07-13 18:24] LABS: Culture Indicated Urine Specimen Cultured
[2024-07-13 20:40] VITALS: BP 149/89; PULSE 85; RESP 16; O2SAT 96
[2024-07-13 20:42] VITALS: PULSE 86; O2SAT 96
[2024-07-13 22:00] LABS: Add Manual Diff / Slide Review NO; Basophils Absolute Auto 100 /uL (0-100); Basophils Percent Auto 0.6 % (0-2); Eosinophils Absolute Auto 100 /uL (0-450); Eosinophils Percent Auto 1.6 % (2-4); Hematocrit 37.6 % (36-46); Hemoglobin 12.8 g/dL (12.0-16.0); Lymphocytes Absolute Auto 3600 /uL (1100-4500); Lymphocytes Percent Auto 39.3 % (25-40); Mean Corpuscular HGB Conc 34.1 % (30-36); Mean Corpuscular Hemoglobin 28.2 PG (26-34); Mean Corpuscular Volume 82.9 fL (80-100); Monocytes Absolute Auto 500 /uL (0-900); Monocytes Percent Auto 5.3 % (3-14); Neutrophils Absolute Auto 4800 /uL (1500-7000); Neutrophils Percent Auto 53.2 % (50-75); Platelet Count 204 X10^3/uL (150-400); Red Blood Cell Count 4.53 X10^6/uL (4.0-5.2); Red Cell Distribution Width 15.5 % (11.6-14.8); White Blood Cell Count 9.1 X10^3/uL (4.5-11.0)
[2024-07-13] MEDS: ONDANSETRON 4 MG/2 ML INJ IV (22:00)
[2024-07-13 22:02] VITALS: O2SAT 99
[2024-07-13 22:05] VITALS: BP 163/108; PULSE 79; RESP 20; O2SAT 100
--- NOTE | 2024-07-13 22:05 | ED_ITS ---
HPI - Female Genitourinary General Chief complaint: Urogenital-Female Stated complaint: peeing blood, pelvic + back pain, nausea Time Seen by Provider: 07/13/24 22:02 Source: patient, RN notes reviewed and old records reviewed Mode of arrival: Ambulatory Limitations: no limitations History of Present Illness HPI Narrative: 29-year-old female sertraline and phentermine daily. Patient presents with complaint of dysuria, urgency and frequency for the past week, developed left lower quadrant and flank pain in the last 3 days. No fevers. Patient started having nausea vomiting today. States he has been a little bit constipated but states she was had decreased water intake. She noticed some hematuria but no vaginal bleeding or discharge. Has had UTI some in the past but not recently. States she was had x3, cholecystectomy and appendectomy in the past. Notes allergy to Augmentin and codeine and ketorolac but can take Tylenol and ibuprofen. States she can take other narcotics. Patient denies any tobacco, no regular alcohol, no recreational drugs. She notes she was 10 months but it is not . Related Data Home Medications ?Medication ?Instructions ?Recorded ?Confirmed phentermine 15 mg capsule 15 mg PO QAM 07/13/24 sertraline 50 mg tablet 50 mg PO DAILY 07/13/2406/16 Previous Rx's ?Medication ?Instructions ?Recorded phenazopyridine 200 mg tablet 200 mg PO TID PRN pain 6 doses #6 07/13/24 (Pyridium) tabs sulfamethoxazole 800 1 tab PO BID #20 tabs mg-trimethoprim 160 mg tablet (Bactrim DS) Allergies Allergy/AdvReac Type Severity Reaction Status Date / Time amoxicillin (From Augmentin) Allergy Hives Verified 01/12/23 10:25 clavulanic acid (From Allergy Hives Verified 01/12/23 10:25 Augmentin) metoclopramide (From Reglan) Allergy Anxiety Verified 01/12/23 10:25 codeine AdvReac Hives Verified 07/13/24 15:06 gabapentin AdvReac Nausea Verified 01/12/23 10:25 ketorolac (From Toradol) AdvReac Nausea Verified 01/12/23 10:25 Review of Systems Review of Systems ROS Unobtainable: All systems reviewed & are unremarkable except as noted in HPI and below Exam Narrative Exam Narrative: GENERAL: Alert and oriented x three, female in moderate distress HEENT: Head normocephalic, atraumatic, EOMI, pupils reactive, face symmetric, moist mucous membranes NECK: Supple, full range of motion CARDIOVASCULAR: Regular rate and rhythm without murmurs, rubs or gallops. RESPIRATORY: Breath sounds equal bilaterally, no wheezes rales or rhonchi. ABDOMEN: Soft, suprapubic tenderness. Normoactive bowel sounds all 4 quadrants. No guarding or rebound, rigidity, no mass : Positive for left CVA tenderness, no right CVA tenderness. EXTREMITIES: Normal range of motion, no clubbing or edema. Neurovascularly intact NEUROLOGICAL: Cranial nerves II through XII grossly intact. Moving all extremities SKIN: Warm, dry, no petechiae, no rashes or lesions. Initial Vital Signs Initial Vital Signs: Vital Signs Temperature 97.6 F 07/13/24 15:02 Pulse Rate 88 07/13/24 15:02 Respiratory Rate 16 07/13/24 15:02 Blood Pressure 143/101 H 07/13/24 15:02 Pulse Oximetry 98 07/13/24 15:02 Oxygen Delivery Method Room Air 07/13/24 15:02 Course Orders Ordered: Discontinued Medications Ibuprofen (Ibuprofen 400 Mg Tablet) 800 mg PO NOW ONE Stop: 07/13/24 22:29 Ondansetron HCl (Ondansetron 4 Mg/2 Ml Inj) 4 mg IV NOW PRN PRN Reason: Nausea And Vomiting Last Admin: 07/13/24 22:00 Dose: 4 mg Documented By: BASIM Ondansetron HCl (Ondansetron 4 Mg Odt) 4 mg PO NOW PRN PRN Reason: Nausea And Vomiting Ondansetron HCl (Ondansetron 4 Mg Odt Prepack) 1 bottle MISC DIRECTED ONE Stop: 07/13/24 22:33 Last Admin: 07/13/24 22:36 Dose: 1 bottle Documented By: BASIM Phenazopyridine HCl (Phenazopyridine 100 Mg Tablet) 200 mg PO NOW ONE Stop: 07/13/24 22:33 Last Admin: 07/13/24 22:36 Dose: 200 mg Documented By: BASIM Tramadol HCl (Tramadol 50 Mg Prepack) 1 bottle MISC DIRECTED ONE Stop: 07/13/24 22:33 Last Admin: 07/13/24 22:36 Dose: 1 bottle Documented By: BASIM Trimethoprim/Sulfamethoxazole (Trimeth/Sulfa 160/800 (Ds) Tablet) 1 tab PO NOW ONE Stop: 07/13/24 22:29 Last Admin: 07/13/24 22:36 Dose: 1 tab Documented By: BASIM Vital Signs Vital signs: Vital Signs - 8 hr 07/13/24 15:02 07/13/24 20:40 07/13/24 20:42 Temperature 97.6 F Pulse Rate 88 85 86 Respiratory Rate 16 16 Blood Pressure 143/101 H 149/89 H Pulse Oximetry 98 96 96 Oxygen Delivery Method Room Air Room Air 07/13/24 22:02 07/13/24 22:05 Temperature Pulse Rate 79 Respiratory Rate 20 Blood Pressure 163/108 H Pulse Oximetry 99 100 Oxygen Delivery Method Room Air MDM - Female Genitourinary Lab Data 07/13/24 21:44 07/13/24 21:44 Labs: Lab Results 07/13/24 07/13/24 Range/Units 17:45 21:44 WBC 9.1 (4.5-11.0) X10^3/uL RBC 4.53 (4.0-5.2) X10^6/uL Hgb 12.8 (12.0-16.0) g/dL Hct 37.6 (36-46) % MCV 82.9 (80-100) fL MCH 28.2 (26-34) PG MCHC 34.1 (30-36) % RDW 15.5 H (11.6-14.8) % Plt Count 204 (150-400) X10^3/uL Neut % (Auto) 53.2 (50-75) % Lymph % (Auto) 39.3 (25-40) % Coleman % (Auto) 5.3 (3-14) % Eos % (Auto) 1.6 L (2-4) % Baso % (Auto) 0.6 (0-2) % Neut # (Auto) 4800 (2910-9618) /uL Lymph # (Auto) 3600 (1861-3716) /uL Coleman # (Auto) 500 (0-900) /uL Eos # (Auto) 100 (0-450) /uL Baso # (Auto) 100 (0-100) /uL Sodium 137 (137-145) mmol/L Potassium 4.1 (3.4-5.1) mmol/L Chloride 103 (98-107) mmol/L Carbon Dioxide 28 (22-32) mmol/L BUN 12 (7-17) mg/dL Creatinine 0.73 (0.52-1.04) mg/dL Estimated GFR > 60 (>60) mL/min BUN/Creatinine Ratio 16.4 (6-22) Glucose 88 (70-99) mg/dL Calcium 9.2 (8.4-10.2) mg/dL Total Bilirubin 0.2 (0.2-1.3) mg/dL AST 20 (14-36) IU/L ALT 16 (<35) IU/L Alkaline Phosphatase 65 (38-126) U/L Total Protein 7.0 (6.3-8.2) g/dL Albumin 4.2 (3.5-5.0) g/dL Globulin 2.8 (1.7-4.1) g/dL Albumin/Globulin Ratio 1.5 (1.0-2.8) Lipase 54 (23-300) U/L Ur Bilirubin Confirm Negative (Negative) Urine RBC >100/hpf H (0-5/HPF) Urine WBC 1-5/hpf (0-5/HPF) Ur Squamous Epith Cells None seen (0-5/HPF) Urine Bacteria Few (2-10) H (None) Ur Culture Indicated? Specimen cultured Vol Urine Centrifuged 10ml (spun) Point of Care Testing Test Results Negative Urine Dip Bedside Urine Glucose Negative Bedside Urine Bilirubin + 1 Bedside Urine Ketone +/- 5 Urine Specific [place] 1.025 Bedside Urine Occult Blood - Negative Bedside Urine pH 5.5 Bedside Urine Protein ++ 100 Bedside Urine Urobilinogen 1+ 2mg Bedside Urine Nitrite + Positive Bedside Urine Leukocytes +++ 500 Esterase MDM Narrative Medical decision making narrative: Point of care is negative. Point of care urine shows a +bilirubin, ketones, protein, nitrate positive, 500+ leukocyte esterase. Microscopy shows greater than 100 RBCs 1-5 WBCs no squamous few bacteria was sent for culture. CBC shows normal white count he was little bit platelets. Chemistries show normal electrolytes BUN creatinine, glucose and LFTs are normal. Patient had Zofran, oral antibiotics. Was discharged with prepack for some pain medication as well as antiemetic and a dose of Pyridium. Discussed with patient's symptoms and exam are consistent with pyelonephritis, she was normal renal function is nontoxic does not appear septic started with UTI symptoms which have progressive flank pain my suspicion for kidney stone or other intra-abdominal source is low. Patient is tolerating orals here in the department. We will start on oral antibiotics with return precautions. Discharge Plan Departure Patient Disposition: Home Clinical Impression: Pyelonephritis Instructions: DI for Kidney Infection Activity Restrictions/Additional Instructions: Follow up for recheck in the next several days if your symptoms are not improving. Your workup today seems consistent with pyelonephritis or kidney infection. Take oral antibiotics until completed. You can take antinausea medication 1 tablet every 6 hours as needed. You can take acetaminophen up to a 1000 mg and/or ibuprofen up to 600 mg every 6 hours as needed or ibuprofen up to 800 mg every 8 hours as needed. If inadequate for pain you can take tramadol 1-2 tablets every 6 hours as needed. This medication can make you sleepy do not drive, perform hazardous activities or make any major decisions while taking it. This medication will make you constipated please take a stool softener once to twice daily until stools are soft and regular. Prescription was sent to [facility] in [place]. Please return for fevers, worsening abdominal back or flank pain, persistent vomiting, lightheadedness or passing out, black or bloody stools, inability to urinate or other new or concerning changes. Prescriptions: New sulfamethoxazole-trimethoprim [Bactrim DS] 800-160 mg tablet 1 tab PO BID Qty: 20 0RF phenazopyridine [Pyridium] 200 mg tablet 200 mg PO TID PRN (Reason: pain) Qty: 6 0RF No Action phentermine 15 mg capsule 15 mg PO QAM sertraline 50 mg tablet 50 mg PO DAILY Referrals: Miscellaneous,Doctor, [Primary Care Provider, Medical] Stand Alone Forms: Patient Portal/API/Survey
[2024-07-13 22:09] LABS: Alanine Aminotransferase 16 IU/L (<35); Albumin 4.2 g/dL (3.5-5.0); Albumin Globulin Ratio 1.5 (1.0-2.8); Alkaline Phosphatase 65 U/L (38-126); Aspartate Aminotransferase 20 IU/L (14-36); BUN Creatinine Ratio 16.4 (6-22); Bilirubin Total 0.2 mg/dL (0.2-1.3); Blood Urea Nitrogen 12 mg/dL (7-17); Calcium 9.2 mg/dL (8.4-10.2); Carbon Dioxide 28 mmol/L (22-32); Chloride 103 mmol/L (98-107); Estimated Glomerular Filt Rate > 60 mL/min (>60); Globulin 2.8 g/dL (1.7-4.1); Glucose 88 mg/dL (70-99); HEMOLYSIS < 15 (0-50); Lipase 54 U/L (23-300); Potassium 4.1 mmol/L (3.4-5.1); Sodium 137 mmol/L (137-145)
--- NOTE | 2024-07-13 22:13 | PC.NURSE ---
Pt ambulatory to restroom without difficulty or assistance. Pt voids approx 80ml and states I still fell like I have to go. Bladder scan to check for retention-70ml in bladder at this time. Dr. Dunn made aware.
[2024-07-13] MEDS: TRIMETH/SULFA 160/800 (DS) TABLET 1 TAB PO (22:36)
[2024-07-13] MEDS: TRAMADOL 50 MG PREPACK 1 BOTTLE MISC (22:36)
[2024-07-13] MEDS: PHENAZOPYRIDINE 100 MG TABLET 200 MG PO (22:36)
[2024-07-13] MEDS: ONDANSETRON 4 MG ODT PREPACK 1 BOTTLE MISC (22:36)
== END 2024-07-13 22:48 | disposition home or self-care (01) ==
PROVIDERS: Student in an Organized Health Care Education/Training Program; Emergency Provider Emergency Medicine
DX: N12 Tubulo-interstitial nephritis, not specified as acute or chronic (principal); R30.0 Dysuria; R10.32 Left lower quadrant pain
CPT/HCPCS: 36415; 80053; 81003; 81015; 81025; 83690; 85025; 87077; 87086; 87186; 96374; 99284; J2405

== ENCOUNTER 2024-08-24 15:39 | Emergency (ER) | payer OTHER, SELFPAY ==
[2024-08-24 16:00] VITALS: BP 142/104; PULSE 94; RESP 16; TEMP 36.8; O2SAT 99; BMI 35.3
== END 2024-08-24 17:43 | disposition left against medical advice (07) ==
DX: Z53.21 Procedure and treatment not carried out due to patient leaving prior to being seen by health care provider (principal)
CPT/HCPCS: 99281

== ENCOUNTER 2025-01-03 12:36 | Emergency (ER) | payer OTHER, SELFPAY ==
[2025-01-03 12:45] VITALS: BP 152/98; PULSE 83; RESP 16; TEMP 36.6; O2SAT 99; BMI 36.3
== END 2025-01-03 16:08 | disposition left against medical advice (07) ==
PROVIDERS: Emergency Provider Emergency Medicine
DX: Z53.21 Procedure and treatment not carried out due to patient leaving prior to being seen by health care provider (principal)
CPT/HCPCS: 99281